=== PATIENT | female | born 1970 | race Caucasian/White ===

== ENCOUNTER → 2023-10-31 09:08 | Outpatient (REF) | payer OTHER, SELFPAY | LOC: HWWDC 09:08 | PROVIDERS: ATTENDING PHYSICIAN Student in an Organized Health Care Education/Training Program | DX: Z12.31 Encounter for screening mammogram for malignant neoplasm of breast (principal) | CPT/HCPCS: 77063; 77067 ==

== ENCOUNTER → 2024-02-26 06:26 | Day surgery (SDC) | payer OTHER, SELFPAY | LOC: GI 06:26 | PROVIDERS: ATTENDING PHYSICIAN Internal Medicine Gastroenterology; FAMILY PHYSICIAN Student in an Organized Health Care Education/Training Program | DX: Z12.11 Encounter for screening for malignant neoplasm of colon (principal); D12.3 Benign neoplasm of transverse colon; K57.30 Diverticulosis of large intestine without perforation or abscess without bleeding; Z79.01 Long term (current) use of anticoagulants | CPT/HCPCS: 45385; 45380; 45381; 88305 ==

== ENCOUNTER → 2024-04-09 06:45 | Day surgery (SDC) | payer OTHER, SELFPAY ==
[2024-04-09 07:50] VITALS: BP 136/73
[2024-04-09 07:56] VITALS: BMI 27.3
[2024-04-09 08:04] VITALS: BMI 27.3
[2024-04-09 10:27] VITALS: BP 124/79
[2024-04-09 10:30] VITALS: BP 119/75
[2024-04-09 10:45] VITALS: BP 151/81
== END ==
LOC: SDS 06:45
PROVIDERS: ATTENDING PHYSICIAN Internal Medicine Gastroenterology
DX: D12.2 Benign neoplasm of ascending colon (principal); D12.3 Benign neoplasm of transverse colon; K64.0 First degree hemorrhoids; Z98.890 Other specified postprocedural states
CPT/HCPCS: 45390; 45385; 88305

== ENCOUNTER 2024-08-28 08:57 | Day surgery (SDC) | payer OTHER, SELFPAY ==
[2024-08-28 09:26] VITALS: BMI 28.6
[2024-08-28 09:33] LABS: Hematocrit 41.3 % (37.0-47.0); Hemoglobin 14.1 g/dL (12.0-16.0); Mean Corp Hgb Conc. 34.1 g/dL (33.0-37.0); Mean Corpuscular Hgb 33.4 pg (27.0-31.0); Mean Corpuscular Volume 97.9 fL (81.0-99.0); Mean Platelet Volume 10.3 fL (7.4-10.4); Platelet Count 273 10^3/uL (130-400); Red Blood Cell Count 4.22 10^6/uL (4.20-5.40); Red Cell Dist. Width 13.8 % (11.5-14.5); White Blood Cell Count 6.4 10^3/uL (4.8-10.8)
[2024-08-28 09:34] VITALS: BP 124/72
[2024-08-28 09:53] LABS: ALT (SGPT) 62 U/L (0-35); AST (SGOT) 60 U/L (14-36); Albumin 5.1 g/dl (3.5-5.0); Alkaline Phosphatase 93 U/L (38-126); Blood Urea Nitrogen 11 mg/dl (7-17); Calcium 9.9 mg/dl (8.4-10.2); Carbon Dioxide 25 mmol/L (22-30); Chloride 101 mmol/L (98-107); Estimated Creatinine Clearance 105 ml/min; Glucose 93 mg/dl (70-99); Potassium 4.4 mmol/L (3.5-5.1); Sodium 137 mmol/L (135-145); Total Protein 7.5 g/dl (6.3-8.2); eGFR > 60.00
[2024-08-28 12:51] VITALS: BP 94/57; BP 95/55
[2024-08-28 12:57] VITALS: BP 94/57
[2024-08-28 13:01] VITALS: BP 110/59
[2024-08-28 13:16] VITALS: BP 116/71
[2024-08-28 13:31] VITALS: BP 111/67
--- NOTE | 2024-08-28 13:49 | ITS.CL.IMPLP ---
Dish [facility]her - Implant Loop
Implant Loop
Procedure Report:
Date of Procedure: August 28, 2024.
Procedure: Insertable Loop Recorder Explant.
Indication: Loop at the end of service.
Performing physician: Chano Mcnally MD, [facility].
Explant: [employer]; Reveal LINQII; Model# LNQ22; Serial# [id number] (implanted on 07/05/2023).
Technique: A time out was performed per protocol. The patient was prepped and draped in the usual fashion. Anesthesia was administered by the anesthesia staff. Local anesthetic was applied to the left prepectoral subcutaneous tissue. An incision
was made over the superior aspect of the device. Dissection was carried to the capsule. The capsule was entered. The old device was explanted. The pocket appeared normal. Hemostasis was excellent. The pocket was irrigated saline. The incision was
closed with 4-0 Monocryl suture. The skin was closed with steri-strips. The estimated blood loss was less than 0.5 mL. There were no complications. No fluoroscopy was used.
Conclusion: Uncomplicated insertable loop explantation.
Recommendation: Routine incision care.
cc: Christiane Bolaños MD.
== END 2024-08-28 14:00 | disposition home or self-care (01) ==
LOC: CATH 08:57
PROVIDERS: ATTENDING PHYSICIAN Internal Medicine Cardiovascular Disease; FAMILY PHYSICIAN Student in an Organized Health Care Education/Training Program
DX: Z09 Encounter for follow-up examination after completed treatment for conditions other than malignant neoplasm (principal); I48.0 Paroxysmal atrial fibrillation; I10 Essential (primary) hypertension; E78.2 Mixed hyperlipidemia; Z86.73 Personal history of transient ischemic attack (TIA), and cerebral infarction without residual deficits; F17.210 Nicotine dependence, cigarettes, uncomplicated; Z79.01 Long term (current) use of anticoagulants
CPT/HCPCS: 33286; 80053; 85027

== ENCOUNTER 2024-09-25 06:25 | Day surgery (SDC) | payer OTHER, SELFPAY | END 2024-09-25 11:40 | disposition home or self-care (01) | LOC: GI 06:25 | PROVIDERS: ATTENDING PHYSICIAN Internal Medicine Gastroenterology | DX: Z12.11 Encounter for screening for malignant neoplasm of colon (principal); K64.0 First degree hemorrhoids; K57.30 Diverticulosis of large intestine without perforation or abscess without bleeding; D12.3 Benign neoplasm of transverse colon; Z86.0100 Personal history of colon polyps, unspecified | CPT/HCPCS: 45380; 88305 ==

== ENCOUNTER → 2024-12-11 07:02 | Outpatient (REF) | payer OTHER, SELFPAY | LOC: HWWDC 07:02 | PROVIDERS: ATTENDING PHYSICIAN Student in an Organized Health Care Education/Training Program | DX: Z12.31 Encounter for screening mammogram for malignant neoplasm of breast (principal) | CPT/HCPCS: 77063; 77067 ==